=== PATIENT | male | born 1975 | race Caucasian/White ===

== ENCOUNTER 2017-06-04 09:22 | Emergency (ER) | payer OTHER ==
[~2017-06-04] VITALS: Ht 172.7 cm; Wt 110.0 kg
[~2017-06-04 09:22] MED LIST: ASPI81 PO; ATOR40TA49 PO; ISOS30 PO; METO25 PO; NITR.4 SL; ORPH100T PO; PLAV75TA PO; PRED10PA PO; TRAM50 PO
[2017-06-04 09:23] VITALS: BP 149/87; PULSE 88; RESP 18; TEMP 97.6; O2SAT 96
--- NOTE | 2017-06-04 09:42 | PD ---
HPI Chief Complaint: Back/ Neck Pain or Injury Time Seen by Provider: 09:36 Travel History International Travel<30 days: No Contact w/Intl Traveler<30days: No Traveled to known affect area: No History of Present Illness HPI Patient is a 42-year-old male who presents to emergency room complaints of left- sided sacral pain. Patient reports that he was bending over yesterday morning to put on his socks when he pulled a muscle in his left sacrum. Patient reports that the pain is located to his left sacrum, reports that it radiates to his left thigh. Patient denies any saddle anesthesia, denies any gait instability. Patient denies any fall or any other trauma. Patient denies any incontinence of urine or bowel. Patient with no fevers or chills, no other complaints. PFSH Past Medical History Hx Anticoagulant Therapy: Yes (plavix, asa 81mg) Autoimmune Disease: No Cancer: No Cardiovascular Problems: Yes High Cholesterol: Yes Coronary Artery Disease: Yes Diabetes: No Diminished Hearing: No Endocrine: No Gastrointestinal Disorders: No Genitourinary: No Hypertension: Yes Immune Disorder: No Implanted Vascular Access Dvce: No Musculoskeletal: No Neurologic: No Psychiatric: No Reproductive: No Respiratory: No Myocardial Infarction: Yes Sickle Cell Disease: No Past Surgical History Hysterectomy: Yes Other Surgery: No Social History Alcohol Use: Yes (socially) Tobacco Use: Yes (1 ppd) Substance Use: No Allergies-Medications (Allergen,Severity, Reaction): Coded Allergies: codeine (Unverified Allergy, Severe, Nausea/Vomiting, 06/04/17) Reported Meds & Prescriptions Reported Meds & Active Scripts Active Valium (Diazepam) 5 Mg Tab 5 Mg PO BID PRN Ibuprofen 600 Mg Tab 600 Mg PO Q6H PRN Vicodin (Hydrocodone-Acetaminophen) 5-300 Mg Tab 1 Tab PO Q6H PRN Reported Atorvastatin (Atorvastatin Calcium) 10 Mg Tab 10 Mg PO HS Aspirin 81 Mg Chew 81 Mg CHEW DAILY Review of Systems General / Constitutional: No: Fever Eyes: No: Visual changes HENT: No: Headaches Cardiovascular: No: Chest Pain or Discomfort Respiratory: No: Shortness of Breath Gastrointestinal: No: Abdominal Pain Genitourinary: No: Dysuria Musculoskeletal: Positive: Pain (left sided sacral pain) Skin: No Rash Neurologic: No: Weakness Psychiatric: No: Depression Endocrine: No: Polydipsia Hematologic/Lymphatic: No: Easy Bruising Physical Exam Narrative GENERAL: Well-nourished, well-developed patient. SKIN: Focused skin assessment warm/dry. HEAD: Normocephalic. EYES: No scleral icterus. No injection or drainage. NECK: Supple, trachea midline. No JVD or lymphadenopathy. CARDIOVASCULAR: Regular rate and rhythm without murmurs, gallops, or rubs. RESPIRATORY: Breath sounds equal bilaterally. No accessory muscle use. GASTROINTESTINAL: Abdomen soft, non-tender, nondistended. MUSCULOSKELETAL: No cyanosis, or edema. Patient with left-sided sacral tenderness, no pain with straight leg raises, no saddle anesthesia, patient ambulating in the emergency room with normal gait. BACK: Nontender without obvious deformity. No CVA tenderness. Data Data Last Documented VS Vital Signs Date Time Temp Pulse Resp B/P (MAP) Pulse Ox O2 Delivery O2 Flow Rate FiO2 06/04/17 09:23 97.6 88 18 149/87 (107) 96 Room Air Orders Orders Sacrum And Coccyx (06/04/17 ) Diazepam (Valium) (06/04/17 09:45) Ketorolac Inj (Toradol Inj) (06/04/17 09:45) Dexamethasone Inj (Decadron Inj) (06/04/17 09:45) Oxycodone-Acetamin 5-325 Mg (Percocet (06/04/17 09:45) MDM Medical Decision Making Medical Screen Exam Complete: Yes Emergency Medical Condition: Yes Medical Record Reviewed: Yes Interpretation(s) Vital Signs Date Time Temp Pulse Resp B/P (MAP) Pulse Ox O2 Delivery O2 Flow Rate FiO2 06/04/17 09:23 97.6 88 18 149/87 (107) 96 Room Air Differential Diagnosis Sciatica, fracture Narrative Course 42-year-old male who presents to emergency room with complaints of left-sided sciatic pain which occurred while putting on his socks yesterday morning. Patient with no signs of cauda equina, patient has been ambulating with normal gait. Patient reports pains from his left buttock's to his left thigh. Patient with no incontinence of urine or bowel, no fever/chills or trauma. During the course of the patients emergency department visit, the patients history, examination, and differential diagnosis were reviewed with the patient. The patient was placed on a compliance monitor with oximetry and frequent blood pressure monitoring. The patient was initially provided IM Toradol, IM dexamethasone, by oral Valium as well as a dose of Percocet. Patient reports relief with this time, patient is feeling much better. Radiology studies were reviewed and remarkable for : No acute abnormalities of the sacrum and coccyx Patient is safe to be discharged home with outpatient follow-up. Signs and symptoms of when to return to the emergency room was reviewed patient in detail. Diagnosis Primary Impression: Sciatic nerve palsy, left Additional Impression: Sacral back pain Patient Instructions: Narcotic given in the ED, General Instructions Additional Instructions: Please provide patient with a copy of their lab work and studies at discharge* * Please follow up with your primary care doctor in 2-3 days Return to the ER if symptoms worsen or progress Return to the ER as needed Please follow-up with the orthopedic surgeon as needed Do not drive or operate heavy machinery while taking narcotic pain medications ( vicodin) or muscle relaxers (valium) Med/Other Pt SpecificInfo: Prescription(s) given Scripts Diazepam (Valium) 5 Mg Tab 5 MG PO BID Y for SPASM, #10 TAB 0 Refills Prov: Ninfa Espinal DO 06/04/17 Ibuprofen (Ibuprofen) 600 Mg Tab 600 MG PO Q6H Y for Pain/Inflammation, #40 TAB 0 Refills Prov: Ninfa Espinal DO 06/04/17 Hydrocodone-Acetaminophen (Vicodin) 5-300 Mg Tab 1 TAB PO Q6H Y for PAIN, #10 TAB 0 Refills Prov: Ninfa Espinal DO 06/04/17 Disposition: 01 DISCHARGE HOME Condition: Stable Ninfa Espinal DO Jun 04, 2017 09:42
[2017-06-04] MEDS ORDERED: ASPI-516 CHEW (09:45)
[2017-06-04] MEDS ORDERED: ATOR10TA15 PO (09:45)
[2017-06-04] MEDS ORDERED: DEXAMETHASONE SOD PHOS 20 MG/5 ML VIAL IM ONE (09:45)
[2017-06-04] MEDS ORDERED: DIAZEPAM 10 MG TAB PO ONE (09:45)
[2017-06-04] MEDS ORDERED: oxyCODONE/ACETAMINOPHEN 5 MG/325 MG TAB PO ONE (09:45)
[2017-06-04] MEDS ORDERED: KETOROLAC TROMETHAMINE 60 MG/2 ML (IM) VIAL IM ONE (09:45)
[2017-06-04] MEDS ORDERED: IBUP-232 PO (09:53)
[2017-06-04] MEDS ORDERED: DIAZ5 PO (09:53)
[2017-06-04] MEDS ORDERED: HYDR-3111 PO (09:53)
--- NOTE | 2017-06-04 10:59 | RADRPT ---
EXAM DATE/TIME: 06/04/2017 10:14 [facility] COMPARISON: No previous studies available for comparison. INDICATIONS : Pain in low back and sacrum since bending over to tie shoes today MEDICAL HISTORY : None. SURGICAL HISTORY : None. ENCOUNTER: Initial ACUITY: 1 day PAIN SCORE: 7/10 LOCATION: Bilateral sacrum FINDINGS: Two-view examination of the sacrum and coccyx demonstrates no evidence of fracture or malalignment. The sacral ala and foramina appear symmetric and intact. The coccyx appears unremarkable. The preve rtebral soft tissues are within normal limits. CONCLUSION: Negative exam of the sacrum and coccyx. Kobi Meraz MD on June 04, 2017 at 10:57 Board Certified Radiologist. This report was verified electronically.
== END 2017-06-04 11:16 | disposition home or self-care (01) ==
LOC: NEPD 09:22
DX: G58.8 Other specified mononeuropathies (principal); M53.3 Sacrococcygeal disorders, not elsewhere classified; I25.10 Atherosclerotic heart disease of native coronary artery without angina pectoris; I10 Essential (primary) hypertension; I25.2 Old myocardial infarction; F17.200 Nicotine dependence, unspecified, uncomplicated; Z79.82 Long term (current) use of aspirin
CPT/HCPCS: 72220; 96372; 99284; J1100; J1885